=== PATIENT | female | born 1980 | race Caucasian/White ===

== ENCOUNTER 2018-02-06 08:35 | Outpatient (CLI) | payer BC ==
--- NOTE | 2018-02-06 11:36 | RAD ---
DOUBLE CONTRAST BARIUM ESOPHAGRAM: INDICATIONS: A 37-year-old female with dysphagia. FLUOROSCOPIC TIME: 1.7 minutes TOTAL EXPOSURE: 14.508 Gy per cm2. TECHNIQUE: Thin barium, thick barium, and effervescent crystals was utilized for a double contrast esophagram. FINDINGS: The baggage handler images demonstrate midline sternotomy changes. The lungs are clear. No pleural effusion o r pneumothorax is identified. No acute osseous abnormality is noted. A small hiatal hernia is present. There are tertiary contractions of the mid to distal esophagus. M ild gastroesophageal reflux is demonstrated with Valsalva maneuver, to the level of the mid to lower thoracic spine. No definite intraluminal mass or stricture is identified. No yissel ulceration is no angel. IMPRESSION: 1. Small hiatal hernia. 2. Mild gastroesophageal reflux. 3. Tertiary contractions of the mid to distal esophagus can be seen with esophagitis. 4. No yissel intraluminal mass, stricture, or ulceration demonstrated. POS: LEIF
== END 2018-02-06 08:36 | disposition home or self-care (01) ==
LOC: RAD 08:35
PROVIDERS: ATTEND Internal Medicine
DX: R13.10 Dysphagia, unspecified (principal); R10.33 Periumbilical pain; K44.9 Diaphragmatic hernia without obstruction or gangrene; K21.0 Gastro-esophageal reflux disease with esophagitis
CPT/HCPCS: 74220